=== PATIENT | male | born 1980 | race Caucasian/White ===

== ENCOUNTER 2023-09-09 16:35 | Emergency (ER) | payer BC ==
[~2023-09-09] VITALS: Wt 68.0 kg
[~2023-09-09 16:35] MED LIST: NKHM; VICODIN 5/500 505 MG PO
[2023-09-09] MEDS ORDERED: PREDNISONE50 MG PO (16:55)
[2023-09-09] MEDS ORDERED: METHOCARBAMOL500 M1 PO (16:55)
== END 2023-09-09 17:05 | disposition home or self-care (01) ==
LOC: ED 16:35
DX: M54.12 Radiculopathy, cervical region (principal); Z91.041 Radiographic dye allergy status; Z90.49 Acquired absence of other specified parts of digestive tract; Z98.890 Other specified postprocedural states